=== PATIENT | male | born 1965 | race Two or more races ===

== ENCOUNTER 2023-04-26 11:47 | Emergency (ER) | payer OTHER ==
[~2023-04-26] VITALS: Ht 165.1 cm; Wt 74.2 kg
[2023-04-26 13:42] VITALS: BP 143/83; PULSE 70; RESP 16; TEMP 97.4; O2SAT 97
[2023-04-26] MEDS ORDERED: CEPH500T PO (14:08)
[2023-04-26] MEDS ORDERED: NAPR-746 PO (14:08)
== END 2023-04-26 14:13 | disposition home or self-care (01) ==
LOC: ER 11:47
DX: I88.9 Nonspecific lymphadenitis, unspecified (principal)
CPT/HCPCS: 70490